=== PATIENT | male | born 1930 | race Caucasian/White ===

== ENCOUNTER 2018-10-11 13:05 | Emergency (ER) | payer MEDICARE ==
[~2018-10-11] VITALS: Ht 177.8 cm; Wt 79.4 kg
[~2018-10-11 13:05] MED LIST: ACETAMINOPHEN-O1 TAB PO; AMOXICILLIN500 M2 PO; ASPIRIN CHEWABL81 MG PO; ASPIRIN LITE C325 MG PO; ATORVASTATIN CA40 M1 PO; CHEWABLE MULTI1 EACH PO; CIPRO500 MG PO; CLOPIDOGREL75 MG PO; COLACE100 MG PO; FLORASTOR250 MG PO; KLOR-CON M2020 ME1 PO; LASIX20 MG PO; LASIX40 MG PO; LIPITOR40 MG PO; METOPROLOL SUCC25 M2 PO; TOPROL XL25 MG PO; VITAMIN D32000 UNIT PO
== END 2018-10-11 16:24 | disposition home or self-care (01) ==
LOC: ED 13:05
DX: S20.219A Contusion of unspecified front wall of thorax, initial encounter (principal); S09.90XA Unspecified injury of head, initial encounter; I10 Essential (primary) hypertension; E78.5 Hyperlipidemia, unspecified; E11.9 Type 2 diabetes mellitus without complications; Z79.899 Other long term (current) drug therapy; Z79.82 Long term (current) use of aspirin; Z95.1 Presence of aortocoronary bypass graft; V43.52XA Car driver injured in collision with other type car in traffic accident, initial encounter; Y93.89 Activity, other specified; Y92.488 Other paved roadways as the place of occurrence of the external cause; Y99.8 Other external cause status

== ENCOUNTER → 2020-07-24 | Outpatient (CLI) | payer MEDICARE | END | disposition home or self-care (01) | LOC: COVID19 13:54 | PROVIDERS: ATTEND Social Worker Clinical | DX: Z20.828 Contact with and (suspected) exposure to other viral communicable diseases (principal) ==